=== PATIENT | male | born 1990 | race Caucasian/White ===

== ENCOUNTER 2020-04-26 14:51 | Emergency (ER) | payer OTHER ==
--- NOTE | 2020-04-26 15:22 | ED Lower Extremity ---
General Chief Complaint: Lower Extremity Stated Complaint: LEFT KNEE PAIN Nursing Triage Note: left lateral knee pain that started yesterday. No known injury. Has been using compression, ice, and heat for pain. Rated at 7/10 currently. 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 He lives in [facility] and gets care at [facility] there for HTN and gout. He is here in [facility] on temporary work assignment and presents ambulatory to ER today reporting a 2 day hx of burning localized pain on the lateral aspect of left knee that is present at rest and worse w/ weight bearing or walking. He missed work due to pain. He denies fall or known injury and denies prior fx/ scope/surgery on left but had old football injury to right knee which is not hurting. He states the pain does not feel like his gout attacks and he admits to being inconsistent w/ daily gout meds. He reports 2 deployments to [facility] w/o any reported IED or combat injury to knee. Pain/Injury Location: left knee Method of Injury: unknown Modifying Factors: Improves With Movement (worse with weight bearing and walking) Allergies and Home Medications Allergies Coded Allergies: No Known Drug Allergies (Unverified , 04/26/20) Patient Home Medication List Home Medication List Reviewed: Yes Review of Systems Constitutional: No fever Musculoskeletal: No back pain; gout (no present gout sx); No joint swelling, No muscle pain Skin: No change in color Psychiatric/Neurological: No Symptoms Reported Past [id number] Hx Patient Social History Alcohol Use: Denies Use Smoking Status: Current Everyday Smoker Type Used: Electronic/Vapor 2nd Hand Smoke Exposure: Yes Recent Infectious Disease Expo: No Recent Hopitalizations: No Seasonal Allergies Seasonal Allergies: No Past Medical History Surgeries: Yes Orthopedic Respiratory: No Cardiac: Yes Hypertension Neurological: No Genitourinary: No Gastrointestinal: No Musculoskeletal: Yes Gout Endocrine: No HEENT: No Cancer: No Psychosocial: No Integumentary: No Physical Exam Vital Signs Vital Signs - First Documented 04/26/20 15:03 Temp 36.8 Pulse 91 Resp 16 B/P (MAP) 148/88 (108) Pulse Ox 98 Capillary Refill : Less Than 3 Seconds Height, Weight, BMI Height: '" Weight: lbs. oz. kg; BMI Method: General Appearance: WD/WN, no apparent distress Cardiovascular: normal peripheral pulses Respiratory: no respiratory distress, no accessory muscle use Hips: left hip non-tender, left hip normal inspection, left hip normal range of motion Legs: right leg non-tender; bilateral leg normal inspection; right leg normal range of motion, right leg no evidence of injury Knees: right knee non-tender, right knee normal inspection, right knee normal range of motion; left knee bone tenderness, left knee pain, left knee soft tissue tenderness, left knee other (point tender along LCL; no instability; MCL is NT; cruciates tight) Ankles: bilateral ankle non-tender, bilateral ankle normal inspection Feet: bilateral foot non-tender Neurologic/Tendon: normal sensation, normal motor functions Neurologic/Psychiatric: no motor/sensory deficits, alert, normal mood/affect, oriented x 3 Skin: normal color, warm/dry Progress/Results/Core Measures Results/Orders My Orders Orders - ADITHYA GUILLERMO MD Knee 4 View Or > Left (04/26/20 15:09) Knee Immobilizer (04/26/20 15:09) Vital Signs/I&O 04/26/20 15:03 Temp 36.8 Pulse 91 Resp 16 B/P (MAP) 148/88 (108) Pulse Ox 98 Blood Pressure Mean: 108 Diagnostic Imaging Diagonstic Imaging: Xray Plain Films/CT/US/NM/MRI: knee Comments no fracture or dislocation Reviewed: Reviewed by Me Departure Impression Primary Impression: Acute pain of left knee Disposition: 01 HOME, SELF-CARE Condition: Stable Departure-Patient Inst. Referrals: NO,LOCAL PHYSICIAN (PCP/Family) Primary Care Physician Patient Instructions: Knee Pain, Acute Pain, Adult Add. Discharge Instructions: The exact cause of the pain was not identified on exam or on x-ray but it appears to correspond to the lateral collateral ligament and MAY be a sprained ligament; however more serious internal derangement cannot be excluded without an MRI. Please wear the knee immobilizer and avoid hazardous or strenuous activity until cleared to do so upon follow up care at your doctor's office or the CT clinic. All discharge instructions reviewed with patient and/or family. Voiced understanding. Work/School Note: Work Release Form Date Seen in the Emergency Department: Apr 26, 2020 Return to Work: Apr 26, 2020 Restrictions: Need Release from Doctor ADITHYA GUILLERMO MD Apr 26, 2020 15:22
[2020-04-26] MEDS ORDERED: NAPR-1071 PO ×2 (15:57→16:07)
--- NOTE | 2020-04-26 15:57 | Diagnostic Imaging Report ---
INDICATION: Lateral pain. FINDINGS: Four view knee shows no fracture, dislocation or acute appearing articular incongruity. IMPRESSION: Unremarkable complete left knee series. Dictated by: Dictated on workstation # [id number]
[2020-04-26 16:22] VITALS: BP 148/64
== END 2020-04-26 16:22 | disposition home or self-care (01) ==
LOC: ER FS 14:54
DX: M25.562 Pain in left knee (principal); I10 Essential (primary) hypertension; M10.9 Gout, unspecified; F17.290 Nicotine dependence, other tobacco product, uncomplicated; Z91.14 Patient's other noncompliance with medication regimen
CPT/HCPCS: 73564; L1830